=== PATIENT | male | born 1980 | race African-American/Black ===

== ENCOUNTER 2024-10-12 17:39 | Emergency (ER) | payer OTHER ==
[~2024-10-12] VITALS: Ht 190.5 cm; Wt 91.9 kg
[2024-10-12 20:01] VITALS: BP 123/82; TEMP 98; O2SAT 97
== END 2024-10-12 20:19 | disposition home or self-care (01) ==
LOC: M ED 17:39
DX: H00.022 Hordeolum internum right lower eyelid (principal); J45.909 Unspecified asthma, uncomplicated